=== PATIENT | male | born 1940 | race African-American/Black ===

== ENCOUNTER 2021-05-26 13:46 | Emergency (ER) | payer MEDICARE, OTHER ==
[2021-05-26 14:03] VITALS: TEMP 98.7; BMI 26.7
[2021-05-26 16:10] LABS: BASO % 0.4 % (0-2.0); EOS % 12.3 % (0-4.5); HEMATOCRIT 44.7 % (35.4-49); HEMOGLOBIN 15.2 GM/dL (11.7-16.9); LYMPH % 19.7 % (8-40); MCH 28.5 pg (25.7-33.7); MEAN CELL VOLUME 83.9 fl (80-96); MEAN PLT VOLUME 7.8 fl (7.5-11.1); MONO % 13.1 % (3.8-10.2); NEUT % 54.5 % (42.8-82.8); PLATELET COUNT 228 10^3/uL (134-434); RBC 5.33 M/mm3 (4.00-5.60); RDW 14.2 % (11.9-15.9); WHITE BLOOD COUNT 6.3 K/mm3 (4.0-10.0)
[2021-05-26] MEDS ORDERED: ACETAMINOPHEN 1000 MG/100 ML VIAL IVPB ONE (16:36)
[2021-05-26 16:37] LABS: BLOOD UREA NITROGEN 13.2 mg/dL (7-18); CALCIUM 9.2 mg/dL (8.5-10.1)
[2021-05-26 16:38] LABS: MAGNESIUM 2.4 mg/dL (1.8-2.4)
[2021-05-26 16:41] LABS: CREATININE 1.3 mg/dL (0.55-1.3)
[2021-05-26 16:42] LABS: BILIRUBIN,TOTAL 0.8 mg/dL (0.2-1); TOT PROT 7.8 g/dl (6.4-8.2)
[2021-05-26 16:47] LABS: N-TERMINAL BNP 69.3 pg/ml (5-450)
[2021-05-26] MEDS ORDERED: ACETAMINOPHEN 500 MG TABLET (FP) ONE (17:08)
[2021-05-26] MEDS ORDERED: ACETAMINOPHEN 500 MG TABLET (FP) PO ONE (17:30)
[2021-05-26 17:48] VITALS: BP 125/84; PULSE 56
== END 2021-05-26 17:49 | disposition home or self-care (01) ==
LOC: JER 13:46
DX: I87.2 Venous insufficiency (chronic) (peripheral) (principal)
CPT/HCPCS: 36415; 71045-TC-FY; 80053; 83735; 83880; 84484; 85025; 93005; 93010; 99285-25